=== PATIENT | male | born 1965 | race Two or more races ===

== ENCOUNTER 2021-12-01 16:35 | Emergency (ER) | payer MEDICAID ==
[~2021-12-01] VITALS: Ht 172.7 cm; Wt 90.7 kg
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
--- NOTE | 2021-12-01 17:16 | NUR ---
[employer] OFFICERS CHRISTIAN ([id number]) AND SONIA ([id number]) OF [employer] AT BEDSIDE FOR DUI INVESTIGATION.
[2021-12-01 20:00] VITALS: BP 129/70
--- NOTE | 2021-12-01 21:00 | NUR ---
Pt ambulatory with a steady gait
--- NOTE | 2021-12-01 21:08 | NUR ---
Patient discharged to home in stable condition. Written and verbal after care instructions given. Patient verbalizes understanding of instruction.
== END 2021-12-01 21:10 | disposition home or self-care (01) ==
LOC: ER 16:41 → EDBD 16:41 → ER 21:10
DX: F10.129 Alcohol abuse with intoxication, unspecified (principal); Y90.9 Presence of alcohol in blood, level not specified